=== PATIENT | male | born 1990 | race Caucasian/White ===

== ENCOUNTER 2019-10-14 18:08 | Emergency (ER) | payer SELFPAY ==
[~2019-10-14] VITALS: Ht 167.6 cm; Wt 96.0 kg
[2019-10-14 18:12] VITALS: BP 137/72
== END 2019-10-14 19:02 | disposition left against medical advice (07) ==
LOC: ER 18:08
DX: Z53.21 Procedure and treatment not carried out due to patient leaving prior to being seen by health care provider (principal)